=== PATIENT | female | born 2000 | race Caucasian/White ===

== ENCOUNTER → 2019-05-30 11:47 | Outpatient (CLI) | payer OTHER, SELFPAY ==
[2017-08-10 17:56] VITALS: BMI 40.7
== END ==
PROVIDERS: Referring Provider Nurse Practitioner Adult Health; Visit Provider Nurse Practitioner Adult Health
DX: N76.0 Acute vaginitis (principal); Z01.419 Encounter for gynecological examination (general) (routine) without abnormal findings; Z20.2 Contact with and (suspected) exposure to infections with a predominantly sexual mode of transmission
CPT/HCPCS: 87070; 87077; 87186; 87205

== ENCOUNTER → 2019-12-27 12:26 | Outpatient (CLI) | payer OTHER, SELFPAY ==
[2019-12-27 11:29] VITALS: BMI 40.7
[2019-12-27 12:43] LABS: Absolute Lymphocyte Count 1.77 X10^3/uL (0.83-4.51); Absolute Neutrophil Count 6.7 X10^3/uL (2.0-7.7); Basophil# 0.05 X10^3/uL; Basophil% 0.5 % (0-1); Eosinophil# 0.16 X10^3/uL; Eosinophils% 1.7 % (0-5); Hematocrit 38.3 % (37-47); Hemoglobin 12.6 g/dL (12.0-15.0); Lymphocyte # 1.77 X10^3/ul (4.0); Lymphocyte % 19.2 % (19-41); Mean Corp Hgb Conc 32.9 g/dL (32-36); Mean Corpuscular Hgb 27.3 pg (27.0-32.0); Mean Corpuscular Volume 82.9 fL (81-99); Mean Platelet Vol. 10.5 fl (6.2-12.0); Monocyte# 0.51 X10^3/uL; Monocyte% 5.5 % (0-10); NRBC Flagged by Analyzer 0 % (0-5); Neutrophil # 6.69 X10^3/uL (2.7-7.7); Neutrophil % 72.9 % (47-70); Platelet Count 296 K/mm3 (150-450); RBC Distribution Width CV 14.4 % (11.6-14.6); RBC Distribution Width SD 43.5 fl (35.1-43.9); Red Blood Count 4.62 M/mm3 (4.2-5.4); White Blood Count 9.2 K/mm3 (4.4-11.0)
[2019-12-27 13:46] LABS: HIV - WCH Non-Reactive (Nonreactive); Hepatitis B Surface Antigen Non-Reactive (Nonreactive); Hepatitis C Antibody Non-Reactive (Nonreactive); Rubella IgG 43.7 IU/mL
[2019-12-27 18:42] LABS: Amphetamine Urine VISTA NEGATIVE (<1000 ng/mL); Barbiturate Urine VISTA NEGATIVE (< 200 ng/mL); Benzodiazepine Urine VISTA NEGATIVE (< 200 ng/mL); Cocaine Urine VISTA NEGATIVE (< 300 ng/mL); Ecstacy Urine VISTA NEGATIVE (< 500 ng/mL); Methadone Urine VISTA NEGATIVE (< 300 ng/mL); PCP Urine VISTA NEGATIVE (< 25 ng/mL); THC Urine VISTA POSITIVE (< 50 ng/mL); Vista UDS pH Range 5
[2019-12-27 20:41] LABS: Chlamydia Trachomatis by PCR Negative (Negative); Neisserai gonorrhoeae by PCR Negative (Negative); Probe Check PASS; Sample Adequacy Control PASS; Specimen Processing Control PASS
[2020-01-03 11:05] LABS: Rapid Plasmin Reagin (RPR) NONREACTIVE (NONREACTIVE)
== END ==
LOC: PAVLAB 12:27
PROVIDERS: PCP Family Medicine; Referring Provider Obstetrics & Gynecology; Visit Provider Obstetrics & Gynecology
DX: Z34.90 Encounter for supervision of normal pregnancy, unspecified, unspecified trimester (principal)
CPT/HCPCS: 36415; 80307; 85025; 86592; 86703; 86762; 86803; 86850; 86900; 86901; 87086; 87088; 87340; 87491; 87591

== ENCOUNTER → 2020-05-09 13:02 | Outpatient (CLI) | payer OTHER, SELFPAY ==
[2020-04-04 10:28] VITALS: BMI 40.6
[2020-05-09 14:34] LABS: Absolute Lymphocyte Count 1.74 X10^3/uL (0.83-4.51); Absolute Neutrophil Count 5.2 X10^3/uL (2.0-7.7); Basophil# 0.04 X10^3/uL; Basophil% 0.5 % (0-1); Eosinophil# 0.17 X10^3/uL; Eosinophils% 2.2 % (0-5); Hematocrit 34.9 % (37-47); Hemoglobin 11.3 g/dL (12.0-15.0); Lymphocyte # 1.74 X10^3/ul (4.0); Lymphocyte % 22.8 % (19-41); Mean Corp Hgb Conc 32.4 g/dL (32-36); Mean Corpuscular Hgb 27.5 pg (27.0-32.0); Mean Corpuscular Volume 84.9 fL (81-99); Mean Platelet Vol. 10.6 fl (6.2-12.0); Monocyte# 0.44 X10^3/uL; Monocyte% 5.8 % (0-10); NRBC Flagged by Analyzer 0 % (0-5); Neutrophil # 5.18 X10^3/uL (2.7-7.7); Platelet Count 252 K/mm3 (150-450); RBC Distribution Width CV 13.6 % (11.6-14.6); RBC Distribution Width SD 42.2 fl (35.1-43.9); Red Blood Count 4.11 M/mm3 (4.2-5.4); White Blood Count 7.6 K/mm3 (4.4-11.0)
[2020-05-09 15:45] LABS: Glucose Challenge Gest 1H 50g 159 mg/dL (70-140)
== END ==
PROVIDERS: Obstetrics & Gynecology; PCP Family Medicine; Referring Provider Obstetrics & Gynecology; Visit Provider Obstetrics & Gynecology
DX: O26.899 Other specified pregnancy related conditions, unspecified trimester (principal); Z13.1 Encounter for screening for diabetes mellitus; Z67.91 Unspecified blood type, Rh negative; Z3A.00 Weeks of gestation of pregnancy not specified
CPT/HCPCS: 36415; 82950; 85025; 86850; 86900; 86901

== ENCOUNTER → 2020-05-14 09:54 | Outpatient (CLI) | payer OTHER, SELFPAY ==
[2020-05-09 14:23] VITALS: BMI 41.6
[2020-05-14 11:33] LABS: Glucose GTT-Gestation. Fasting 73 mg/dL (<105)
[2020-05-14 11:33] LABS: Glucose GTT-Gestational 1 Hr 154 mg/dL (<190)
[2020-05-14 13:11] LABS: Glucose GTT-Gestational 2 Hr 133 mg/dL (<165)
[2020-05-14 14:31] LABS: Glucose GTT-Gestational 3 Hr 102 L (<145)
== END ==
PROVIDERS: PCP Family Medicine; Referring Provider Obstetrics & Gynecology; Visit Provider Obstetrics & Gynecology
DX: R73.09 Other abnormal glucose (principal)
CPT/HCPCS: 36415; 82951; 82952

== ENCOUNTER → 2020-05-20 | Outpatient (CLI) | payer OTHER, SELFPAY ==
[2020-05-20 09:14] VITALS: BMI 42.1
[2020-05-20 13:52] LABS: Amphetamine Urine VISTA NEGATIVE (<1000 ng/mL); Barbiturate Urine VISTA NEGATIVE (< 200 ng/mL); Benzodiazepine Urine VISTA NEGATIVE (< 200 ng/mL); Cocaine Urine VISTA NEGATIVE (< 300 ng/mL); Ecstacy Urine VISTA NEGATIVE (< 500 ng/mL); Methadone Urine VISTA NEGATIVE (< 300 ng/mL); PCP Urine VISTA NEGATIVE (< 25 ng/mL); THC Urine VISTA POSITIVE (< 50 ng/mL); Vista UDS pH Range 5
== END | disposition home or self-care (01) ==
LOC: LABSPEC 12:48
PROVIDERS: PCP Family Medicine; Visit Provider Obstetrics & Gynecology
DX: O26.899 Other specified pregnancy related conditions, unspecified trimester (principal); N89.8 Other specified noninflammatory disorders of vagina; F12.10 Cannabis abuse, uncomplicated
CPT/HCPCS: 80307; 87070; 87205

== ENCOUNTER → 2020-07-09 | Outpatient (CLI) | payer OTHER, MEDICAID, SELFPAY ==
[2020-07-09 10:05] VITALS: BMI 45.5
== END | disposition home or self-care (01) ==
LOC: LABSPEC 12:22
PROVIDERS: PCP Family Medicine; Referring Provider Obstetrics & Gynecology; Visit Provider Obstetrics & Gynecology
DX: O09.90 Supervision of high risk pregnancy, unspecified, unspecified trimester (principal); Z3A.00 Weeks of gestation of pregnancy not specified
CPT/HCPCS: 87077; 87081; 87186

== ENCOUNTER 2020-07-16 21:34 | Outpatient (CLI) | payer OTHER, MEDICAID, SELFPAY ==
[2020-07-09 10:05] VITALS: BMI 45.5
[2020-07-16 22:02] VITALS: BP 131/71; PULSE 100
[2020-07-16 22:04] VITALS: TEMP 37; O2SAT 98
[2020-07-16 23:44] VITALS: BMI 46.2
--- NOTE | 2020-07-18 13:59 | OB.TRI.PN ---
Progress Notes Date of Service: 07/16/20 Progress Note: Patient presents for triage evaluation secondary to contractions. Cervix closed. Contractions resolved after arrival. FHT: Moderate variability reactive no decelerations category I tracing [place]: Irregular Contractions Assessment and plan: Reactive NST, reassuring maternal and status patient discharged to home to follow-up .at next scheduled visit. See problem list details for additional plan information. Multi Select Codes - Urinary/Genital Urinary/Genital CPT Codes: 74319-79 non-stress test Interp
== END 2020-07-16 22:35 | disposition home or self-care (01) ==
LOC: WPOUT 21:56 → WP 21:58
PROVIDERS: PCP Family Medicine; Visit Provider Obstetrics & Gynecology
DX: Z34.90 Encounter for supervision of normal pregnancy, unspecified, unspecified trimester (principal); Z3A.00 Weeks of gestation of pregnancy not specified
CPT/HCPCS: 59025; 59050; 99218; G0378

== ENCOUNTER 2020-08-07 19:00 | Inpatient (IN) | payer OTHER, MEDICAID, SELFPAY ==
[2020-08-04 14:15] VITALS: BMI 47.1
[2020-08-07 19:24] VITALS: BMI 46.4
[2020-08-07 19:46] VITALS: TEMP 36.7; O2SAT 98
[2020-08-07 19:47] VITALS: BP 138/66; PULSE 113
[2020-08-07] MEDS: Lactated Ringers 1,000 ML 50 ML IV (20:10)
[2020-08-07 20:27] LABS: Absolute Lymphocyte Count 1.31 X10^3/uL (0.83-4.51); Absolute Neutrophil Count 5.9 X10^3/uL (2.0-7.7); Basophil# 0.03 X10^3/uL; Basophil% 0.4 % (0-1); Eosinophil# 0.16 X10^3/uL; Hematocrit 34.2 % (37-47); Hemoglobin 10.6 g/dL (12.0-15.0); Lymphocyte # 1.31 X10^3/ul (4.0); Lymphocyte % 16.7 % (19-41); Mean Corpuscular Hgb 24.7 pg (27.0-32.0); Mean Corpuscular Volume 79.5 fL (81-99); Mean Platelet Vol. 11.2 fl (6.2-12.0); Monocyte# 0.44 X10^3/uL; Monocyte% 5.6 % (0-10); NRBC Flagged by Analyzer 0 % (0-5); Neutrophil # 5.86 X10^3/uL (2.7-7.7); Neutrophil % 74.5 % (47-70); POSITIVE MORPHOLOGY YES; Platelet Count 266 K/mm3 (150-450); RBC Distribution Width CV 15.6 % (11.6-14.6); RBC Distribution Width SD 44.3 fl (35.1-43.9); White Blood Count 7.9 K/mm3 (4.4-11.0)
[2020-08-07] MEDS: 0.9% Normal Saline Single 100 ML IV.SOLN. INTRA-UTER (20:27)
[2020-08-07] MEDS: miSOPROStol 25 MCG TABLET PO (20:38)
[2020-08-07 20:48] LABS: Differential Indicated SCAN CRITERIA MET
[2020-08-07 20:54] LABS: Anisocytosis 1+; Platelet Estimate ADEQUATE (ADEQ); Red Cell Morphology N CHROM NORMAL (NORM C&C)
[2020-08-07 20:55] LABS: Hypochromasia RARE; Microcytosis 1+; Tear Drop Cell RARE
[2020-08-07 21:25] VITALS: BP 133/78; PULSE 87; TEMP 36.1
[2020-08-07 22:21] VITALS: TEMP 36.4
[2020-08-07 22:22] VITALS: BP 132/60; PULSE 100; O2SAT 98
[2020-08-07 23:17] VITALS: BP 115/56; PULSE 88; TEMP 36.7
[2020-08-07] MEDS: Mag Hydrox/Al Hydrox/Simeth 30 ML UDC PO (23:22)
[2020-08-08] VITALS (66 sets, daily range): BP systolic 93–179; BP diastolic 41–120; PULSE 76–115; TEMP 36.1–37.8; O2SAT 84–100
[2020-08-08] MEDS: miSOPROStol 25 MCG TABLET PO (00:28)
--- NOTE | 2020-08-08 00:54 | HP.PCM_ITS ---
- Problem List (1) Encounter for induction of labor Status: Acute (2) 36 weeks gestation of Status: Acute Comment: electronic covid test ordered 07/09/20 (3) Abnormal glucose Status: Acute Comment: normal 3gtt (4) Anxiety Status: Acute Comment: no meds, encouraged counseling. (5) Asthma during Status: Acute Comment: proair PRN, controlled (6) Family history of myasthenia gravis Status: Acute Comment: patient's father's side (7) Marijuana abuse Status: Acute Comment: + tox 12/27/2019, encouraged cessation plan random tox. (8) Obesity affecting Status: Acute Qualifiers: Comment: ordered 1 TM gct- didn't get done. . encouraged healthy weight gain (9) Positive GBS test Status: Acute Comment: PCN in labor (10) Status: Acute Qualifiers: Comment: NIPT, carrier, and ntd screening declined. Anatomy us normal (11) Rh negative status during Status: Acute Qualifiers: Comment: rhogam PRN and at 28 weeks. Rhogam given 05/09 (12) Supervision of high-risk Status: Acute Qualifiers: Comment: PRR ELENI 08/01/20 Girl! Historia Support person [place] (13) Tobacco use during Status: Acute Qualifiers: Comment: cigarettes and vaping, encouraged cessation. History and Physical Date of Admission: 08/08/20 Intake Vital Signs 08/04/20 Height 5 ft 6 in 08/04/20 Weight: 292 lb 08/04/20 BMI 47.1 08/04/20 BP 120/80 Intake Visit Reasons: 41WK OB Chief Complaint: est ob Contract Recruiter Required: No Is patient in pain?: No Allergies No Known Allergies Allergy (Verified 08/04/20 14:15) Medications Albuterol IH (ProAir) [Proair Hfa (SP)Vent Pts] 1 puff INHALATION Q4H PRN PRN 03/18/17 [History Confirmed 08/04/20] vitamin#30 30 mg iron-10 mg iron-folic acid 1 mg-omg3 capsule 1 cap PO DAILY 12/27/19 [History Confirmed 08/04/20] famotidine 20 mg tablet 20 mg PO BID #60 tab 05/20/20 [Rx Confirmed 08/04/20] Last Menstral Period: 10/15/19 Zika: Zika virus screening: Negative : No PFSH PFSH Medical History Anxiety (Acute) Asthma (Acute) Diarrhea (Acute) SOB (shortness of breath) (Acute) Family History Mother Heart disease, Onset Age: 58 Myocardial infarction Father Heart disease Myocardial infarction, Onset Age: 57 Other Asthma Cancer Diabetes Social History (Updated 08/04/20 @ 14:[address] Barb Macedo MD) Smoking Status: Former smoker Electronic Cigarette Use: with nicotine alcohol intake: never substance use type: marijuana caffeine: Yes what type of physical activity do you participate in: none seatbelt use: always do you feel safe at home: Yes additional social history: Patient works at [employer] (3rd shift) Support person Montserrat zuleta FOB Pregancy History 1 Elective abortions Hx Para Spontaneous abortions Hx # Term Pregnancies Ectopic pregnancies Hx # Pregnancies Multiple births # of living children HPI 41WK OB : Details: TANK QUACH is a 20 year old who presents for routine OB visit. OB Visit ELENI Calculator Estimated Delivery Date Method Current WG Current Estimate 08/01/20 Ultrasound #1 40w 3d Other Estimates 07/21/20 LMP (Certain) 42w 0d Expected Delivery Route/Plan Labor Preferences- CB/BF classes: none labor support person: ruth Le labor intervention preferences: no specific pain management options preferred: Epidural cut cord/dad catch: : yes PP control planned: [] discussed possible routes of delivery and associated risks: discussed possible delivery modalities and possible indications for each including R/B/A of , VAVD, FAVD, and CS. questions answered. special requests: [] Specific Issue/Plans flu vaccine: declined tdap vaccine: 05/09 rhogam: 05/09 LARC form signed: declined movement and labor precautions reviewed. Problem list reviewed and updated with the most current plan of care details and appropriate orders placed. Relevant counseling for the gestational age provided. Continue routine care and follow up unless otherwise noted in visit notes/problem list details Initial Weight: 250 lb Date EGA Weight BP Urine Prot Glucose FHR FuHt Pres Dilation Effaced St Visit Note 12/27/19 8w 6d 241 lb (-9 lb) 100/80 170 SM- CRL- SM- CRL - 3.7cm cons with LMP SM- CRL - SM- CRL - 19.6mm NOT consistent with LMP 01/10/20 10w 6d 239 lb (-11 lb) 112/74 Negative Negative 168 SM- no vb cramping, nipt and carrier screen 02/05/20 14w 4d 248 lb (-2 lb) 122/80 Negative Negative 155 SM- no vb cramping decided against all testing. 03/05/20 18w 5d 255 lb (+5 lb) 104/82 Negative Negative 150 Sm- no vb cramping 04/04/20 23w 0d 255 lb 6 oz (+5 lb 6 oz) 112/82 Negative Negative 140 23 GP -no cramping, LOF, VB, DFM. Encouraged CB classes. GCT and rhogam next vi sit. 05/09/20 28w 0d 262 lb (+12 lb) 114/72 Negative Negative 135 28 GP - no LOF, VB, DFM, ctx. 3rd trimester labs done today. TDAP and rhogam given. 05/20/20 29w 4d 265 lb 4 oz (+15 lb 4 oz) 114/80 1+ Negative 145 29 GP - no LOF, VB, DFM, ctx. Reports vaginal odor - culture and rapid BV done today. Passed 3h GCT. 06/03/20 31w 4d 269 lb (+19 lb) 118/70 135 31 SM- no vb lof good fm no regular ctx 06/16/20 33w 3d 277 lb (+27 lb) 124/86 Negative Negative 140 34 SM- no vb lof good fm no regular ctx inproved GERD 06/30/20 35w 3d 282 lb (+32 lb) 114/68 Negative Negative 140 35 Sm- no vb lof good fm no regular ctx 07/09/20 36w 5d 286 lb 2 oz (+36 lb 2 oz) 128/68 Negative Negative 130 36 Cephalic 0 40 -2 GP - no LOF, VB, DFM, ctx . GBS done today. 07/17/20 37w 6d 285 lb 8 oz (+35 lb 8 oz) 120/80 Negative Negative 132 38 MH-Irreg CTX. No VB, LOF. Good FM. Declines internal exam. See last pm WP for rule out labor. RTO 1 week, prn. Discussed positive GBS. Covid scheduled 07/23/20 38w 5d 291 lb 4 oz (+41 lb 4 oz) 124/74 Negative Negative 120 39 Cephalic 0 40 -2 GP - no LOF, VB, DFM, ctx . Discussed routes of delivery. Discussed IOL at 41w if no labor. 07/31/20 39w 6d 288 lb (+38 lb) 138/80 Negative Negative 140 40 Cephalic 0 40 SM_ no vb lof good fm no regular ctx 08/04/20 40w 3d 292 lb (+42 lb) 120/80 Negative Negative 140 40 Cephalic 0.5 50 -2 GP - no LOF, VB, DFM, reg ular ctx. IOL scheduled for . ACOG First Trimester First Trimester: Desire for , Alcohol, Tobacco Cessation, Illicit/Recreational Drug/Substance Use, Intimate Partner Violence, Barriers to care, Unstable Housing, Communication Barriers, Environmental/Work Hazards, Anticipated Course of Care, Toxoplasmosis Precations, Use of Any medications, Sexual activity, Exercise, Dental Care, Sauna/Hot tub use, Seat Belt use, Childbirth classes/Hospital facilities, , Travel, Indications for US and Screening for Aneuploidy Diagnostics Diagnostics Diagnostics Gest Glucose Tolerance MG/DL 05/14/20 Details: HIV: Urine Culture: Sequential Screen: NIPT Screen: ROS Const Reports system reviewed and no additional complaints, except as docu Eyes Reports system reviewed and no additional complaints, except as docu ENT Reports system reviewed and no additional complaints, except as docu Card Reports system reviewed and no additional complaints, except as docu Resp Reports system reviewed and no additional complaints, except as docu GI Reports system reviewed and no additional complaints, except as docu Reports system reviewed and no additional complaints, except as docu, Denies abnormal vaginal bleeding, Denies painful urination, Denies pelvic pain, Denies vaginal discharge, Denies vaginal odor, Denies vaginal itching Musc Reports system reviewed and no additional complaints, except as docu Skin/Breast Reports system reviewed and no additional complaints, except as docu Neuro Yes system reviewed and no additional complaints, except as docu Psych Reports system reviewed and no additional complaints, except as docu Endo Reports system reviewed and no additional complaints, except as docu Exam Const General: cooperative, healthy appearing, comfortable, no acute distress, well developed, well groomed Nutritional Appearance: average body habitus, well nourished Orientation: alert, awake, oriented x3 HENMT Head: normal to inspection, normocephalic, atraumatic Eyes Pupils: PERRL, accommodation normal Resp Effort & Inspection: normal respiratory effort, able to speak in complete sentences, symmetric chest movement Cardio Rate: regular rate GI Palpation: soft, no guarding, no masses, nontender Skin General: no rashes or lesions noted, elasticity normal, turgor normal Neuro General: alert, awake, oriented x3 Cranial Nerves: CN's II-XI intact bilaterally, sense of smell intact, PERRL, accommodation normal, EOM intact bilaterally Speech: speech normal Gait: normal gait Psych Appearance: grossly normal, well kempt Mental Status: mental status grossly normal Mood: congruent mood Affect: normal affect Speech and Movement: speech and movement normal Attitude: cooperative Thought Process: normal Thought Content: normal Judgment: judgment good Results POC Urinalysis 2 Dip (Clinic) Office Urine Glucose Negative Last Edit by Rosetta Real on 08/04/20 14:1 9 Office Urine Protein Negative Last Edit by Rosetta Real on 08/04/20 14:1 9 Assessment & Plan Problems 1. Positive GBS test B95.1 PCN in labor 2. 36 weeks gestation of Z3A.36 electronic covid test ordered 07/09/20 3. Abnormal glucose R73.09 normal 3gtt 4. Rh negative status during in third trimester O26.893 rhogam PRN and at 28 weeks. Rhogam given 05/09 5. Asthma during O99.519; J45.909 proair PRN, controlled 6. Anxiety F41.9 no meds, encouraged counseling. 7. Family history of myasthenia gravis Z82.0 patient's father's side 8. Maternal tobacco use in third trimester O99.333 cigarettes and vaping, encouraged cessation. 9. Obesity affecting in third trimester O99.213 ordered 1 TM gct- didn't get done. . encouraged healthy weight gain 10. 40 weeks gestation of Z3A.40 NIPT, carrier, and ntd screening declined. Anatomy us normal 11. Supervision of high risk in third trimester O09.93 PRR ELENI 08/01/20 Girl! Historia Support person [place] UPDATE- I have seen the patient and performed any clinically relevant updates to the history and physical exam. Barb Macedo MD
[2020-08-08 01:03] LABS: Amphetamine Urine VISTA NEGATIVE (<1000 ng/mL); Barbiturate Urine VISTA NEGATIVE (< 200 ng/mL); Benzodiazepine Urine VISTA NEGATIVE (< 200 ng/mL); Cocaine Urine VISTA NEGATIVE (< 300 ng/mL); Ecstacy Urine VISTA NEGATIVE (< 500 ng/mL); Methadone Urine VISTA NEGATIVE (< 300 ng/mL); PCP Urine VISTA NEGATIVE (< 25 ng/mL); THC Urine VISTA NEGATIVE (< 50 ng/mL); Vista UDS pH Range 5
[2020-08-08] MEDS: Oxytocin 30 units/NS 500 ml 30 UNITS/500 ML IV.SOLN IV (04:26)
[2020-08-08] MEDS: Lactated Ringers 500 ML 999 ML IV ×4 (09:05→21:07)
[2020-08-08] MEDS: fentaNYL-bupivacaine (epidural) 100 ML BAG EPIDURAL ×3 (10:40→20:17)
[2020-08-08] MEDS: Ondansetron 4 MG/2 ML Vial IV (11:15)
[2020-08-08] MEDS: Lactated Ringers 1,000 ML 200 ML IV ×2 (11:29→17:41)
[2020-08-08] MEDS: Mag Hydrox/Al Hydrox/Simeth 30 ML UDC PO (16:53)
[2020-08-09] VITALS (18 sets, daily range): BP systolic 118–148; BP diastolic 55–74; PULSE 89–120; RESP 16–20; TEMP 36.2–37.6; O2SAT 97–98
[2020-08-09] MEDS: Amnioinfusion- 0.9% NS 1,000 ML IV.SOLN. INTRA-UTER (00:32)
[2020-08-09] MEDS: Lactated Ringers 500 ML 999 ML IV (00:38)
[2020-08-09] MEDS: Oxytocin 30 units/NS 500 ml 30 UNITS/500 ML IV.SOLN 334 UNITS IV (00:53)
--- NOTE | 2020-08-09 01:17 | OP.PCM_ITS ---
Problem List (1) Encounter for induction of labor Status: Acute (2) Positive GBS test Status: Acute Comment: PCN in labor (3) 36 weeks gestation of Status: Acute Comment: electronic covid test ordered 07/09/20 (4) Abnormal glucose Status: Acute Comment: normal 3gtt (5) Rh negative status during Status: Acute Qualifiers: Comment: rhogam PRN and at 28 weeks. Rhogam given 05/09 (6) Asthma during Status: Acute Comment: proair PRN, controlled (7) Anxiety Status: Acute Comment: no meds, encouraged counseling. (8) Family history of myasthenia gravis Status: Acute Comment: patient's father's side (9) Tobacco use during Status: Acute Qualifiers: Comment: cigarettes and vaping, encouraged cessation. (10) Marijuana abuse Status: Acute Comment: + tox 12/27/2019, encouraged cessation plan random tox. (11) Obesity affecting Status: Acute Qualifiers: Comment: ordered 1 TM gct- didn't get done. . encouraged healthy weight gain (12) Status: Acute Qualifiers: Comment: NIPT, carrier, and ntd screening declined. Anatomy us normal (13) Supervision of high-risk Status: Acute Qualifiers: Comment: PRR ELENI 08/01/20 Girl! Historia Support person [place] (14) Post-dates Status: Acute (15) Encounter for induction of labor Status: Acute Vaginal Delivery Maternal Presentation: Medically Indicated Induction iol 41 weeks Method of Induction: Pitocin, Franco Bulb, Cytotec Amniotic Membrane Rupture Type: Artificial Amniotic Fluid Description: Clear Final ELENI: 07/31/20 Gestational age: 41 Weeks and 2 Days Date of Procedure: 08/09/20 Pre-Operative Diagnosis: iol postdates Post-Operative Diagnosis: same Surgery/ Procedure Performed: Spontaneous Vaginal Delivery Type of Anesthesia: Epidural Description of Procedure: Patient began pushing and delivered the head in the AYDEE presentation. The head was delivered atraumatically. The anterior and posterior shoulders delivered without complication followed by the rest of the and the infant was placed on the maternal abdomen. Delayed cord clamping was employed for approximately 60 seconds. Cord was clamped and cut and gentle traction was applied to the cord and the placenta delivered spontaneously immediately following it was noted to be intact with three-vessel cord. The perineum and vagina were inspected and noted to have a first-degree perineal laceration repaired in the usual fashion with 3-0 Vicryl repeat. EBL was 100 cc. Patient and infant tolerated delivery well. Presentation: AYDEE Placental Delivery Description: Spontaneous Placenta Disposition: [facility] Cord Vessel Description: 3 Vessels Cord Entanglement: None Estimated Blood Loss: 100 A gender: Female Episiotomy Description: None Laceration: Perineal Extension/lac, 1st degree Medications given after delivery: IV Pitocin Complications: None Multi Select Codes - Urinary/Genital Urinary/Genital CPT Codes: 51263 Vaginal Delivery [facility]
--- NOTE | 2020-08-09 01:25 | DCINST_ITS ---
Discharge Diet: No Restrictions Discharge Activity: Return to Normal Activity, May not drive while taking narcotic pain medications., May Shower May resume sexual activity in: 4-6 weeks Call your doctor if your incision/area has: Continuous Slow Oozing, Sudden Increased Bleeding, Increased Pain/ Swelling, Increased Redness, Foul Smelling Discharge Additional Instructions: If you experience any of the following, contact your healthcare provider. * Bleeding that soaks a pad every hour for 2 hours * Fever 100.4 or higher * Unrelieved incision or abdominal pain * Swelling, redness, discharge or bleeding from your incision or episiotomy site * Your incision begins to separate * Problems urinating (including inability to urinate or burning while urinating). * Visual changes * Severe headache * Flu-like symptoms * Pain or redness in one of both of your breasts * Pain, warmth, tenderness or swelling in your legs, especially the calf area * Frequent nausea and vomiting * Symptoms of depression or anxiety If you experience any of the following, call 911 or go to the nearest Emergency Room. * Chest pain * Problems breathing * Seizure activity * Partial or complete paralysis of a body part, slurred speech, weakness or drooping of the face, or a sudden inability to walk or hold your balance Allergies/Adverse Reactions: Allergies No Known Allergies Allergy (Verified 08/07/20 19:40) Medications to take at Discharge Albuterol IH (ProAir) [Proair Hfa (SP)Vent Pts] 1 puff INHALATION Q4H PRN PRN 03/18/17 vitamin#30 30 mg iron-10 mg iron-folic acid 1 mg-omg3 capsule 1 cap PO DAILY 12/27/19 Famotidine 20 mg PO BID 08/07/20 Naproxen [Naprosyn] 250 - 500 mg PO Q8H PRN PRN #30 tab 08/09/20 The following prescriptions were given: Naproxen [Naprosyn] 250 - 500 mg PO Q8H PRN PRN #30 tab PRN Reason: MILD PAIN Transmission Status: Pending to [facility] Please Follow Up With: Joceline Palacios MD - [phone] When: Call to make an appointment with your doctor in 6 weeks. If you had elevated Blood pressure or 4th degree laceration you will need to be seen in 2 weeks. Primary Care Physician: Sean Carl MD [Primary Care Provider] - Test Results: Test results from this visit will be discussed in further detail at your follow- up appointment, if applicable.
[2020-08-09] MEDS: Naproxen 250 MG Tablet 500 MG PO ×2 (01:33→14:10)
[2020-08-09] MEDS: oxyCODONE 5 MG Tablet PO (01:33)
[2020-08-09] MEDS: 0.9% Saline Lock 10 ML Syringe IV (03:45)
[2020-08-09] MEDS: Acetaminophen 500 MG Tablet 1000 MG PO ×2 (09:35→20:36)
--- NOTE | 2020-08-09 16:50 | CASEMGMT ---
Social Work Assessment Labor and Delivery Unit Date of Referral: 08/09/20 Time of Referral: 04:53 Date of Intervention: 08/09/20 Time of Intervention: 16:50 Reason for Referral: History of anxiety, marijuana use during , father of baby (FOB) not involved. History obtained from: Medical chart and mother of baby (MOB) Household composition: NAYELI reports lives home with her sister and 2 other roommates that are female. Patient's parent/guardian status: MOB reports is not with FOB and will require a paternity test. Educational Status: High School Financial Status: Limited income Infant Supplies: MOB reports has all needs met for baby including diapers, wipes, clothes, car seat, crib, etc. Childcare/Caregiver(s): MOB reports she will be main nursing care partner Transportation: MOB denies any issues with transportation Programs/Agencies Involved: [facility] Children Services/Legal Issues: MOB reports was in foster care for 6 years. MOB reports was adopted by iMmi Fuller. Behavioral Health Issues: Mental Health History: MOB reports history of anxiety. MOB reports anxiety and managed without medications. MOB states prior history of counseling when she was being adopted. Substance Use History: MOB admits to marijuana use during and states stopped when she found out she was . MOB reports plan is to abstain from marijuana use. Maternal and Drug Screens: MOB had positive screens for THC on 12/27/2019 and 05/20/2020. MOB negative upon admission. Baby?s urine negative. Meconium is pending. Family/Social Stressors: MOB states does not know who baby girl, Historia?s father is and will be obtaining a paternity test. MOB reports baby girl has ?similar features? to whom she believes is the father of baby. Support Systems: MOB reports good support from sister and roommates and family. Depression and Anxiety/Shaken Baby/Safe Sleeping: Resources provided and reviewed. ASSESSMENT: Met with MOB in room. Introduced role and reason for referral. MOB open to speaking with this worker. MOB openly discussed history of anxiety. MOB reports at times has used marijuana to cope with anxiety but has been managing anxiety without medications. MOB admits to marijuana use during and reports abstained from use after finding out she was . MOB states father of baby is not involved and will require a paternity test. MOB states good support from family and roommates. MOB denies any needs or referrals at this time. Due to reported marijuana use and positive tox screen for THC during report to be made 08/11/20 to [facility]. Safe Plan of Care for infant related to substance use: MOB reports does not continue to use marijuana once home. PLAN: Home with resources provided. No other services requested or indicated. Galen Rivas, CLINICAL DIETETIC TECHNICIAN, TEST DRIVER
[2020-08-10 01:58] VITALS: BP 121/61; PULSE 80; RESP 16; TEMP 36.6
[2020-08-10] MEDS: Acetaminophen 500 MG Tablet 1000 MG PO ×2 (06:24→20:15)
[2020-08-10 08:10] VITALS: BP 138/57; PULSE 98; RESP 18; TEMP 35.8
--- NOTE | 2020-08-10 08:32 | PCM.PN.OB ---
Patient Problems: Active and Suspected Problems (Last Reviewed 08/04/20 @ 14:15 by Rosetta Real) Encounter for induction of labor (Acute) Post-dates (Acute) Encounter for induction of labor (Acute) Positive GBS test (Acute) PCN in labor 36 weeks gestation of (Acute) electronic covid test ordered 07/09/20 Abnormal glucose (Acute) normal 3gtt Rh negative status during (Acute) rhogam PRN and at 28 weeks. Rhogam given 05/09 Asthma during (Acute) proair PRN, controlled Anxiety (Acute) no meds, encouraged counseling. Family history of myasthenia gravis (Acute) patient's father's side Tobacco use during (Acute) cigarettes and vaping, encouraged cessation. Marijuana abuse (Acute) + tox 12/27/2019, encouraged cessation plan random tox. Obesity affecting (Acute) ordered 1 TM gct- didn't get done. . encouraged healthy weight gain (Acute) NIPT, carrier, and ntd screening declined. Anatomy us normal Supervision of high-risk (Acute) PRR ELENI 08/01/20 Girl! Historia Support person [place] Subjective: Patient doing well without complaints. Tolerating PO. Ambulating and voiding without difficulty. feeding well. Denies chest pain, shortness of breath, calf pain/swelling, fevers, chills, lightheadedness. - Physical Exam Vitals/I&O's: Vital Signs Temp Pulse Resp BP Pulse Ox 97.8 F 80 16 121/61 H 97 08/10/20 01:58 08/10/20 01:58 08/10/20 01:58 08/10/20 01:58 08/09/20 03:23 Oxygen Delivery Method Room Air Weight: 287 lb 14.779 oz Body Mass Index (BMI) 46.4 Intake and Output for Last 24 Hours 08/08/20 08/09/20 08/10/20 23:59 23:59 23:59 Intake Total 6284.13 / 6284.13 850.42 / 850.42 Output Total 3050 / 3050 1475 / 1475 Balance 3234.13 / 3234.13 -624.58 / -624.58 General: Alert, Oriented x3 Microbiology Past 72 Hours 08/07/20 20:15 Mucosa - Nose SARS-CoV-2 Antigen (Rapid) - Final Current Medications Acetaminophen (Acetaminophen 500 Mg Tablet) 1,000 mg PO Q8H PRN PRN PRN Reason: Pain Score 1-3 Last Admin: 08/10/20 06:24 Dose: 1,000 mg Documented by: Bisacodyl (Bisacodyl 10 Mg Suppository) 10 mg RC UD PRN PRN Reason: If no BM Dibucaine (Dibucaine 30 Gm Tube) 1 applic TOPICAL TID PRN PRN; Protocol PRN Reason: Discomfort Hydrocortisone (Hydrocortisone 2.5% Crm) 1 applic TOPICAL TID PRN PRN; Protocol PRN Reason: Discomfort Methylergonovine Maleate (Methylergonovine 0.2 Mg/Ml Ampul) 0.2 mg IM X1 PRN PRN Reason: Excess bleeding/uterine atony Naproxen (Naproxen 250 Mg Tablet) 500 mg PO Q8H PRN PRN PRN Reason: Pain Score 1-3 Last Admin: 08/09/20 14:10 Dose: 500 mg Documented by: Ondansetron HCl (Ondansetron 4 Mg/2 Ml Vial) 4 mg IV Q4H PRN PRN PRN Reason: Nausea Oxycodone HCl (Oxycodone 5 Mg Tablet) 5 - 10 mg PO Q4H PRN PRN PRN Reason: Pain Score 4-10 Last Admin: 08/09/20 01:33 Dose: 10 mg Documented by: Senna/Docusate Sodium (Senna/Docusate Sodium 1 Tablet) 1 - 2 tablet PO DAILY PRN PRN PRN Reason: Constipation Simethicone (Simethicone 80 Mg Tablet) 80 mg PO PCHS PRN PRN Reason: Indigestion/Stomach pain Sodium Chloride (0.9% Saline Lock 10 Ml Syringe) 5 - 15 ml IV UD PRN PRN Reason: SALINE FLUSH Last Admin: 08/09/20 03:45 Dose: 10 ml Documented by: Medical Necessity - Tobacco Use Smoking Status: Former smoker Assessment/Plan All Active Problems (Last Reviewed 08/04/20 @ 14:15 by Rosetta Real) Encounter for induction of labor (Acute) Post-dates (Acute) Encounter for induction of labor (Acute) Positive GBS test (Acute) 36 weeks gestation of (Acute) Abnormal glucose (Acute) Rh negative status during (Acute) Asthma during (Acute) Anxiety (Acute) Family history of myasthenia gravis (Acute) Tobacco use during (Acute) Marijuana abuse (Acute) Obesity affecting (Acute) (Acute) Supervision of high-risk (Acute) Pharyngitis (Resolved) Sinusitis (Resolved) Streptococcus pharyngitis (Resolved) s/p PPD # 1 1. routine post delivery care 2. breast feeding- support given 3. rh negative 4. rubella immune
[2020-08-10] MEDS: Naproxen 250 MG Tablet 500 MG PO (12:49)
[2020-08-10] MEDS: Senna/Docusate Sodium 1 Tablet PO (12:49)
[2020-08-10 13:15] VITALS: BP 129/50; PULSE 100; RESP 16; TEMP 36.2
[2020-08-10 20:08] VITALS: BP 127/69; PULSE 99; RESP 16; TEMP 36.5
[2020-08-11 03:02] VITALS: BP 112/52; PULSE 89; RESP 16; TEMP 36.3
[2020-08-11] MEDS: Naproxen 250 MG Tablet 500 MG PO ×2 (03:10→10:07)
[2020-08-11 08:20] VITALS: BP 133/71; PULSE 99; RESP 20; TEMP 36.1
[2020-08-11] MEDS: Senna/Docusate Sodium 1 Tablet PO (10:07)
--- NOTE | 2020-08-11 12:56 | CASEMGMT ---
SOCIAL WORK Report called to Dee with [facility] regarding MOB's use of THC during . Awaiting meconium results. Galen Rivas, ESTIMATION MANAGER, DEPUTY PROBATION OFFICER
== END 2020-08-11 11:20 | disposition home or self-care (01) | DRG 806 ==
PROVIDERS: Obstetrics & Gynecology; Admitting Provider Obstetrics & Gynecology; PCP Family Medicine; Visit Provider Obstetrics & Gynecology
DX: O48.0 Post-term pregnancy (principal); O99.824 Streptococcus B carrier state complicating childbirth; O70.0 First degree perineal laceration during delivery; O99.324 Drug use complicating childbirth; F12.10 Cannabis abuse, uncomplicated; O99.52 Diseases of the respiratory system complicating childbirth; J45.909 Unspecified asthma, uncomplicated; O99.344 Other mental disorders complicating childbirth; O99.214 Obesity complicating childbirth; E66.9 Obesity, unspecified; O99.334 Smoking (tobacco) complicating childbirth; F17.210 Nicotine dependence, cigarettes, uncomplicated; Z3A.41 41 weeks gestation of pregnancy; Z37.0 Single live birth
CPT/HCPCS: 59025; 59050; 80307; 85025; 86850; 86900; 86901; 87426; 99218; J7030; J7120; A4216; G0378; J2405

== ENCOUNTER 2021-03-17 17:10 | Emergency (ER) | payer OTHER, MEDICAID, SELFPAY ==
[2021-03-17 17:11] VITALS: BP 139/83; PULSE 118; RESP 18; TEMP 36.8; O2SAT 96; BMI 45.3
[2021-03-17 17:35] VITALS: PULSE 120; RESP 18
[2021-03-17] MEDS: Ipratropium/Albuterol Sulfate 3 ML AMPUL.NEB INHALATION (17:36)
[2021-03-17 17:41] VITALS: O2SAT 95
[2021-03-17] MEDS: predniSONE 20 MG Tablet 60 MG PO (17:54)
--- NOTE | 2021-03-17 17:55 | RAD_ITS ---
STUDY: X-RAY CHEST REASON FOR EXAM: Female, 21 years old. Cough. TECHNIQUE: Single AP portable view of the chest. COMPARISON: None. FINDINGS: The lungs are clear and expanded. There is no demonstrated pleural abnormality. Normal size heart. Normal mediastinum and vashti. Normal visualized pulmonary arteries. Normal visualized aortic arch and descending thoracic aorta. Normal visualized thoracic spine. Normal visualized ribs, clavicles, and shoulders. There is no demonstrated abnormality of the visualized soft tissue structures of the upper abdomen. RAD/Chest 1 View (Portable) IMPRESSION: Normal x-ray examination of the chest. Electronically Signed: Usman Borden DO at 19:03 EDT Tel [phone], Service support ,
--- NOTE | 2021-03-17 18:25 | ED.VIS.DYS ---
HPI History of Present Illness Chief Complaint: Shortness of Breath Informant: patient Narrative Narrative: Presents with worsening shortness of breath wheezing since yesterday. Mild productive cough since yesterday. No fevers or headache. No vomiting or diarrhea. No loss of taste or smell. Nonvaccinated with Covid. Denies sick contacts. History of asthma and tobacco. States does get flares yearly. No history of diabetes. Denies recent travel, surgeries, or immobilizations. No history of PE or DVT. Took her inhaler prior to arrival. Prior similar symptoms: Yes [facility] Medical History (Updated 03/17/21 @ 19:[address] Ricky Mercedes DO) Anxiety Asthma Diarrhea SOB (shortness of breath) Home Medications albuterol sulfate [ProAir HFA] 2 puff INHALATION Q6H PRN 03/17/21 [History Last Taken Unknown] albuterol sulfate [Ventolin HFA] 1 - 2 puff INHALATION Q4H PRN PRN #1 inhaler 03/17/21 [Rx Last Taken Unknown] prednisone 60 mg PO DAILY #12 tab 03/17/21 [Rx Last Taken Unknown] Allergy/AdvReac Type Severity Reaction Status Date / Time No Known Allergies Allergy Verified 03/17/21 17:11 Family History Mother Heart disease, Onset Age: 58 Myocardial infarction Father Heart disease Myocardial infarction, Onset Age: 57 Other Asthma Cancer Diabetes Social History Smoking Status: Current every day smoker tobacco type: e-cigarettes Electronic Cigarette Use: with nicotine alcohol intake: never substance use type: marijuana caffeine: Yes what type of physical activity do you participate in: none seatbelt use: always do you feel safe at home: Yes additional social history: Patient works at [employer]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 ROS ROS ED Constitutional Constitutional ED: Denies chills, fever(s) or sweats Eyes Eyes: Denies change in vision ENT ENT ED: Denies dysphagia or sore throat Cardiovascular Cardiovascular: Denies chest pain, leg edema, palpitations or racing heartbeat Respiratory/Chest Respiratory/Chest: Reports cough and dyspnea; Denies dyspnea on exertion Gastrointestinal Gastrointestinal: Denies abdominal pain, diarrhea, nausea or vomiting Genitourinary Genitourinary ED: Denies dysuria, hematuria or urinary frequency Musculoskeletal Musculoskeletal: Denies back pain, extremity pain or neck pain Integumentary Denies rash or wounds Neurologic Neurologic: Denies headache(s), paresthesias or weakness EXAM Physical Exam Const Vital Signs: 03/17/21 17:11 03/17/21 17:35 03/17/21 17:41 Temperature 98.2 F Temperature Source Temporal Pulse Rate 118 H 120 H Respiratory Rate 18 18 Respiratory Effort Short of Breath Respiratory Depth Normal Respiratory Pattern Normal Blood Pressure 139/83 H Blood Pressure Mean 101 Pulse Ox 96 Oxygen Delivery Method Room Air Room Air Oxygen Flow Rate (L/min) 95 03/17/21 19:08 Temperature Temperature Source Pulse Rate Respiratory Rate 17 Respiratory Effort Respiratory Depth Respiratory Pattern Blood Pressure Blood Pressure Mean Pulse Ox 97 Oxygen Delivery Method Oxygen Flow Rate (L/min) Positive well nourished and well developed General Appearance ED: well developed and NAD HEENT Reports moist mucous membranes normocephalic and atraumatic Eyes PERRL, EOMs intact bilaterally and conjunctivae normal General Eye ED: Yes normal appearance of both eyes Neck no lymphadenopathy and supple General: Negative for tenderness Chest Wall Chest: Negative for tenderness Resp normal air movement Resp Narrative: Expiratory wheezing noted. No respiratory distress. Effort and Inspection: symmetric chest movement; Negative for respiratory distress Cardio regular rhythm and no murmurs Rate: tachycardic Peripheral Pulses: pulses 2+ throughout GI normal to inspection, nondistended, normoactive bowel sounds and non-tender Palpation: Negative for guarding or rebound tenderness present Back/Spine no CVA tenderness and no thoracic nor lumbar tenderness Extremity normal to inspection General Extremety ED: Negative for edema or tenderness General Extremity: Negative for edema Neuro oriented x3 and no sensory deficits noted Sensorium / Orientation: awake and alert Skin no rashes or lesions noted and no wounds MDM MDM MDM Narrative Medical decision making narrative: Patient pulse ox 96% tachycardic however status post her inhaler use. She has had no respiratory distress expiratory wheezing on exam. She is started on prednisone aerosol treatment. Chest x-ray reviewed by myself shows no acute process. Covid testing negative. Reevaluation improved wheezing on exam. She is still tachycardic however no respiratory distress, with her asthma and wheezing lower suspicion for PE. Patient refilled her inhaler for additional days of steroids discussed viral syndrome with asthma exacerbation. Tobacco cessation discussed. She will follow-up with her PCP. Return precautions discussed. All questions were answered. Radiography Chest X-Ray - ED: 1 View, Read by ED Physician and No Acute Disease Diagnostic Testing: Clinical Impression(s) from Imaging Studies Chest X-Ray 03/17/21 17:55 IMPRESSION: Normal x-ray examination of the chest. Electronically Signed: Usman Borden DO at 19:03 EDT Tel [phone], Service support , Discharge Plan Triage Chief Complaint: Shortness of Breath ED Provider: Ricky Mercedes Dx/Rx/DC Orders Clinical Impression: Asthma exacerbation, URI, acute, Tobacco dependence Instructions: Asthma in Older Adults, ED URI, Viral, No Abx (Adult) Prescriptions: New prednisone 20 MG tablet 60 mg PO DAILY Qty: 12 RF: 0 albuterol sulfate [Ventolin HFA] 1 INHALER inhaler 1 - 2 puff inhalation Q4H PRN PRN (Reason: Wheezing) Qty: 1 RF: 0 No Action albuterol sulfate [ProAir HFA] 90 mcg/actuation Hfa Aerosol Inhaler 2 puff INHALATION Q6H PRN (Reason: SOB) RF: 0 Primary Care Provider: Sean Carl Referrals: Sean Carl MD [Primary Care Provider] - 3-5 Days if not improving Disposition Disposition: Home, Self Care Discharge Date/Time: 03/17/21 19:09
[2021-03-17 19:08] VITALS: RESP 17; O2SAT 97
== END 2021-03-17 19:09 | disposition home or self-care (01) ==
PROVIDERS: Emergency Provider Emergency Medicine; PCP Family Medicine
DX: J45.901 Unspecified asthma with (acute) exacerbation (principal); J06.9 Acute upper respiratory infection, unspecified; Z20.822 Contact with and (suspected) exposure to COVID-19; F41.9 Anxiety disorder, unspecified; F17.290 Nicotine dependence, other tobacco product, uncomplicated; Z79.899 Other long term (current) drug therapy
CPT/HCPCS: 71045; 87426; 94640; 99283

== ENCOUNTER 2021-03-19 17:52 | Emergency (ER) | payer OTHER, MEDICAID, SELFPAY ==
[2021-03-19 17:53] VITALS: BP 128/100; PULSE 100; RESP 25; TEMP 36.4; O2SAT 95; BMI 100.3
[2021-03-19 18:52] VITALS: O2SAT 97
[2021-03-19 19:32] VITALS: PULSE 92; RESP 20; RESP 22; O2SAT 97
[2021-03-19] MEDS: Ipratropium/Albuterol Sulfate 3 ML AMPUL.NEB INHALATION ×2 (19:32→21:34)
[2021-03-19] MEDS: Albuterol 2.5 MG/3 ML VIAL.NEB. INHALATION (19:33)
--- NOTE | 2021-03-19 20:02 | CPS ---
x1 Albuterol given to pt. in ER as well
[2021-03-19 20:03] VITALS: RESP 18
--- NOTE | 2021-03-19 21:30 | EX.ED.DYSGE1 ---
HPI History of Present Illness Chief Complaint: Asthma Narrative Narrative: Patient is a 21-year-old female with past medical history of asthma. She was seen in the ER on Tuesday and had a work obtained which showed no obvious pneumonia negative Covid no signs of heart damage. She states she has been on steroids and albuterol inhaler but has had minimal symptom improvement and secondary to this comes in for repeat evaluation. [facility] Medical History (Updated 03/19/21 @ 21:[address] Ezra Weston DO) Anxiety Asthma Diarrhea SOB (shortness of breath) Home Medications albuterol sulfate [ProAir HFA] 2 puff INHALATION Q6H PRN 03/17/21 [History Last Taken Unknown] albuterol sulfate [Ventolin HFA] 1 - 2 puff INHALATION Q4H PRN PRN #1 inhaler 03/17/21 [Rx Last Taken Unknown] prednisone 60 mg PO DAILY #12 tab 03/17/21 [Rx Last Taken Unknown] albuterol sulfate 2.5 mg INHALATION Q4H PRN #180 ml 03/19/21 [Rx Last Taken Unknown] ipratropium-albuterol 3 ml INHALATION Q6H PRN #180 ml 03/19/21 [Rx Last Taken Unknown] nebulizer and compressor #1 ea 03/19/21 [Rx Last Taken Unknown] Allergy/AdvReac Type Severity Reaction Status Date / Time No Known Allergies Allergy Verified 03/19/21 17:52 Family History Mother Heart disease, Onset Age: 58 Myocardial infarction Father Heart disease Myocardial infarction, Onset Age: 57 Other Asthma Cancer Diabetes Social History Smoking Status: Current every day smoker tobacco type: e-cigarettes Electronic Cigarette Use: with nicotine alcohol intake: never substance use type: marijuana caffeine: Yes what type of physical activity do you participate in: none seatbelt use: always do you feel safe at home: Yes additional social history: Patient works at [employer]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 ROS ROS ED Constitutional Constitutional ED: Denies chills or fever(s) ENT ENT ED: Reports rhinorrhea and sore throat Cardiovascular Cardiovascular: Denies chest pain Respiratory/Chest Respiratory/Chest: Reports cough and dyspnea Gastrointestinal Gastrointestinal: Denies abdominal pain, diarrhea, nausea or vomiting Genitourinary Genitourinary ED: Denies dysuria Musculoskeletal Musculoskeletal: Denies myalgias Integumentary Denies rash Neurologic Neurologic: Denies headache(s) Hematologic/Lymphatic Hematologic/Lymphatic: Denies easy bleeding or easy bruising EXAM Physical Exam Const Vital Signs: 03/19/21 17:53 03/19/21 18:52 03/19/21 19:32 Temperature 97.5 F L Temperature Source Temporal Pulse Rate 100 92 Respiratory Rate 25 H 22 H Respiratory Effort Non-Labored Short of Breath Short of Breath Respiratory Depth Normal Normal Respiratory Pattern Normal Tachypnea Blood Pressure 128/100 H Blood Pressure Mean 109 Pulse Ox 95 97 Oxygen Delivery Method Room Air Room Air Room Air 03/19/21 20:03 Temperature Temperature Source Pulse Rate Respiratory Rate 18 Respiratory Effort Respiratory Depth Respiratory Pattern Blood Pressure Blood Pressure Mean Pulse Ox Oxygen Delivery Method Positive well nourished and well developed General Appearance ED: well developed HEENT HEENT Narrative: Cobblestoning the posterior pharynx consistent with sinus drainage but no airway edema or compromise Eyes PERRL and EOMs intact bilaterally Neck supple and no JVD Neck Narrative: Positive anterior cervical lymphadenopathy noted Chest Wall palpation of chest normal Resp Resp Narrative: Breath sounds are diminished throughout with diffuse inspiratory and expiratory wheezing but no signs of acute distress Cardio regular rate and regular rhythm GI normal to inspection, nondistended, normoactive bowel sounds, non-tender, non-distended and no masses Auscultation: normoactive bowel sounds Palpation: soft Extremity normal to inspection Extremity Narrative: No asymmetric edema no pitting edema negative Homans' sign bilaterally Neuro oriented x3 and CN's II-XII intact bilaterally Sensorium / Orientation: alert Motor Exam: strength 5/5 throughout Psych mental status grossly normal Skin no rashes or lesions noted MDM MDM MDM Narrative Medical decision making narrative: Patient presented to the ER with a stable room air pulse ox. Her history and exam is consistent with a viral infection leading to asthma exacerbation. As she is recently had a Covid swab chest x-ray and blood work I do not feel need to repeat this. Patient was given DuoNeb and albuterol treatments and on reevaluation reported feeling better and her breath sounds had improved. Therefore at this time I feel patient is safe for discharge but I will have her continue her prednisone but transition her to a nebulizer albuterol and DuoNeb to help control her symptoms. Discharge Plan Triage Chief Complaint: Asthma ED Provider: Ezra Weston Dx/Rx/DC Orders Clinical Impression: Asthma exacerbation Instructions: Asthma Action Plan, Asthma Prescriptions: New ipratropium-albuterol 0.5 mg-3 mg(2.5 mg base)/3 mL solution for nebulization 3 ml inhalation Q6H PRN (Reason: shortness of breath or wheezing) Qty: 180 RF: 0 albuterol sulfate 2.5 mg /3 mL (0.083 %) solution for nebulization 2.5 mg inhalation Q4H PRN (Reason: shortness of breath or wheezing) Qty: 180 RF: 0 (DME) nebulizer and compressor Device See Rx Instructions .ROUTE .MEDSUPPLY Qty: 1 RF: 0 No Action albuterol sulfate [ProAir HFA] 90 mcg/actuation Hfa Aerosol Inhaler 2 puff INHALATION Q6H PRN (Reason: SOB) RF: 0 prednisone 20 MG tablet 60 mg PO DAILY Qty: 12 RF: 0 albuterol sulfate [Ventolin HFA] 1 INHALER inhaler 1 - 2 puff inhalation Q4H PRN PRN (Reason: Wheezing) Qty: 1 RF: 0 Primary Care Provider: Sean Carl Referrals: Sean Carl MD [Primary Care Provider] - Disposition Disposition: Home, Self Care
--- NOTE | 2021-03-19 21:49 | CPS ---
Duoneb aerosol breathing tx. given to pt. at 2134. 102HR/18BPM with slight expiratory wheezes pre-assessment. 98HR/20BPM with cleared breath sounds with slight expiratory wheezes in upper lobe lung martin post-assessment.
[2021-03-19 21:50] VITALS: BP 142/86; PULSE 87; RESP 18; O2SAT 98
== END 2021-03-19 21:51 | disposition home or self-care (01) ==
PROVIDERS: Emergency Provider Emergency Medicine; PCP Family Medicine
DX: J45.901 Unspecified asthma with (acute) exacerbation (principal); Z79.899 Other long term (current) drug therapy; F17.290 Nicotine dependence, other tobacco product, uncomplicated
CPT/HCPCS: 94640; 99251; 99282; G0463

== ENCOUNTER → 2022-03-03 | Outpatient (CLI) | payer MEDICAID, SELFPAY | END | disposition home or self-care (01) | LOC: MFPLAB 16:25 | PROVIDERS: PCP Family Medicine; Referring Provider Family Medicine; Visit Provider Family Medicine | DX: R76.12 Nonspecific reaction to cell mediated immunity measurement of gamma interferon antigen response without active tuberculosis (principal) | CPT/HCPCS: 86480; 36415 ==

== ENCOUNTER 2023-01-08 17:26 | Emergency (ER) | payer OTHER, MEDICAID, SELFPAY ==
[2023-01-08 17:27] VITALS: BP 142/98; PULSE 88; RESP 18; TEMP 35.9; O2SAT 99; BMI 41.9
[2023-01-08] MEDS: Ipratropium/Albuterol Sulfate 3 ML AMPUL.NEB INHALATION (17:57)
[2023-01-08 18:02] VITALS: PULSE 90; RESP 18; O2SAT 97
--- NOTE | 2023-01-08 19:03 | ED.VIS.DYS ---
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 She walked into the walk-in cooler and sat there for 15 minutes and it really helped, but then she got too cold to remain there, came back out into the heat where she progressed. Now that she is here in the air conditioner she is feeling much better but still wheezy and a little tight. She denies any recent illness. No other symptoms. She did not have access to her inhaler, her significant other brought it and it did not seem to help much, albuterol rescue inhaler. [facility] Medical History (Updated 01/08/23 @ 19:[address] James Jeong MD) Anxiety Asthma Diarrhea SOB (shortness of breath) Home Medications albuterol sulfate 90 mcg/actuation aerosol inhaler (ProAir HFA) 2 puff inhalation Q6H PRN SOB 03/17/21 [History Last Taken Unknown] albuterol sulfate 90 mcg/actuation aerosol inhaler (Ventolin HFA) 1 - 2 puff inhalation Q4H PRN PRN Wheezing ##1 03/17/21 [Rx Last Taken Unknown] prednisone 20 mg tablet 60 mg (3 x 20 mg) PO DAILY #12 tabs 03/17/21 [Rx Last Taken Unknown] albuterol sulfate 2.5 mg/3 mL (0.083 %) solution for nebulization 2.5 mg (3 mL) inhalation Q4H PRN shortness of breath or wheezing #180 mL 03/19/21 [Rx Last Taken Unknown] ipratropium 0.5 mg-albuterol 3 mg (2.5 mg base)/3 mL nebulization soln 3 ml inhalation Q6H PRN shortness of breath or wheezing #180 mL 03/19/21 [Rx Last Taken Unknown] nebulizer and compressor #1 ea 03/19/21 [Rx Last Taken Unknown] Allergy/AdvReac Type Severity Reaction Status Date / Time No Known Allergies Allergy Verified 01/08/23 17:27 Family History Mother Heart disease, Onset Age: 58 Myocardial infarction Father Heart disease Myocardial infarction, Onset Age: 57 Other Asthma Cancer Diabetes Social History Smoking Status: Current every day smoker tobacco type: e-cigarettes Electronic Cigarette Use: with nicotine alcohol intake: never substance use type: marijuana caffeine: Yes what type of physical activity do you participate in: none seatbelt use: always do you feel safe at home: Yes additional social history: Patient works at [employer]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 ROS ROS ED Constitutional Constitutional ED: Denies chills or fever(s) ENT ENT ED: Denies rhinorrhea or sore throat Cardiovascular Cardiovascular: Denies chest pain, racing heartbeat or syncope Respiratory/Chest Respiratory/Chest: Reports dyspnea and wheezing Integumentary Denies abscess or rash EXAM Physical Exam Const Vital Signs: 01/08/23 17:27 01/08/23 18:02 01/08/23 18:02 Temperature 96.6 F L Temperature Source Temporal Pulse Rate 88 Respiratory Rate 18 Respiratory Effort Normal Non-Labored Respiratory Depth Normal Respiratory Pattern Normal Blood Pressure 142/98 H Blood Pressure Mean 112 Pulse Ox 99 97 Oxygen Delivery Method Room Air Room Air Room Air 01/08/23 18:02 Temperature Temperature Source Pulse Rate 90 Respiratory Rate 18 Respiratory Effort Respiratory Depth Respiratory Pattern Normal Blood Pressure Blood Pressure Mean Pulse Ox Oxygen Delivery Method Positive well nourished and well developed General Appearance ED: well developed HEENT Reports moist mucous membranes Eyes PERRL and EOMs intact bilaterally Resp normal respiratory effort Resp Narrative: Diffuse expiratory wheezes bilaterally equal breath sounds bilaterally, trachea midline. No distress. Speaking in full sentences. No rales or rhonchi. Cardio regular rate, regular rhythm and no murmurs Rate: Negative for tachycardic Neuro oriented x3, CN's II-XII intact bilaterally and no sensory deficits noted Gait (Neuro): normal gait Psych mental status grossly normal Mood & Affect: anxious Skin no wounds and skin turgor normal Rashes: no rashes MDM MDM MDM Narrative Medical decision making narrative: Doing much better after doing nebulizer treatment. We will give her another albuterol prior to discharge, I am not concerned about pneumonia here I think it was due to the ambient environment and humidity. We will give her a dose of steroids, she opts for Kenalog as opposed to a prescription of prednisone, she was given 40 mg IM, and discharged with a work note. Discharge Plan Triage Chief Complaint: Asthma ED Provider: James Jeong Dx/Rx/DC Orders Clinical Impression: Acute asthma exacerbation Instructions: Asthma Action Plan Prescriptions: No Action albuterol sulfate [ProAir HFA] 90 mcg/actuation Hfa Aerosol Inhaler 2 puff INHALATION Q6H PRN (Reason: SOB) prednisone 20 MG tablet 60 mg PO DAILY Qty: 12 0RF albuterol sulfate [Ventolin HFA] 1 INHALER inhaler 1 - 2 puff inhalation Q4H PRN PRN (Reason: Wheezing) Qty: 1 0RF ipratropium-albuterol 0.5 mg-3 mg(2.5 mg base)/3 mL solution for nebulization 3 ml inhalation Q6H PRN (Reason: shortness of breath or wheezing) Qty: 180 0RF albuterol sulfate 2.5 mg /3 mL (0.083 %) solution for nebulization 2.5 mg inhalation Q4H PRN (Reason: shortness of breath or wheezing) Qty: 180 0RF (DME) nebulizer and compressor Device See Rx Instructions .ROUTE .MEDSUPPLY Qty: 1 0RF Rx Instructions: As directed Stand Alone Forms: ED Work / School Excuse Primary Care Provider: Sean Carl Referrals: Sean Carl MD [Primary Care Provider] - As Needed Disposition Disposition: Home, Self Care
[2023-01-08 19:12] VITALS: PULSE 98; RESP 18
[2023-01-08] MEDS: Albuterol 2.5 MG/3 ML VIAL.NEB. INHALATION (19:12)
[2023-01-08] MEDS: Triamcinolone Acetonide 40 MG/ML Vial IM (19:25)
[2023-01-08 19:26] VITALS: BP 123/73; PULSE 78; RESP 18; O2SAT 99
== END 2023-01-08 19:53 | disposition home or self-care (01) ==
PROVIDERS: Emergency Provider Emergency Medicine; PCP Family Medicine; Visit Provider Emergency Medicine
DX: J45.901 Unspecified asthma with (acute) exacerbation (principal); F17.290 Nicotine dependence, other tobacco product, uncomplicated
CPT/HCPCS: 94640; 96372; 99282

== ENCOUNTER 2023-08-26 09:29 | Emergency (ER) | payer OTHER, SELFPAY ==
[2023-08-26 09:30] VITALS: BP 133/74; PULSE 104; RESP 20; TEMP 36.4; O2SAT 97; BMI 44.2
[2023-08-26 09:31] VITALS: BP 133/74; PULSE 100; RESP 18; TEMP 36.6; O2SAT 97
--- NOTE | 2023-08-26 09:48 | EDS_ITS ---
HPI History of Present Illness Chief Complaint: General Illness Informant: patient Narrative Narrative: Patient reports waking this morning with scratchy throat, congestion, body aches. She is having chills but did not measure a fever at home. She has taken DayQuil this morning. She reports she felt well when she went to bed last night. [facility] Medical History (Updated 08/26/23 @ 11:[address] Vanda Segovia MD) Anxiety Asthma Home Medications albuterol sulfate 90 mcg/actuation aerosol inhaler (ProAir HFA) 2 puff inhalatio n Q6H PRN SOB 03/17/21 [History Last Taken Unknown] albuterol sulfate 90 mcg/actuation aerosol inhaler (Ventolin HFA) 1 - 2 puff inhalation Q4H PRN PRN Wheezing ##1 03/17/21 [Rx Last Taken Unknown] prednisone 20 mg tablet 60 mg (3 x 20 mg) PO DAILY #12 tabs 03/17/21 [Rx Last Taken Unknown] albuterol sulfate 2.5 mg/3 mL (0.083 %) solution for nebulization 2.5 mg (3 mL) inhalation Q4H PRN shortness of breath or wheezing #180 mL 03/19/21 [Rx Last Taken Unknown] ipratropium 0.5 mg-albuterol 3 mg (2.5 mg base)/3 mL nebulization soln 3 ml inhalation Q6H PRN shortness of breath or wheezing #180 mL 03/19/21 [Rx Last Taken Unknown] nebulizer and compressor #1 ea 03/19/21 [Rx Last Taken Unknown] oseltamivir 75 mg capsule (Tamiflu) 75 mg PO BID 5 days #10 caps 08/26/23 [Rx Last Taken Unknown] Allergy/AdvReac Type Severity Reaction Status Date / Time No Known Allergies Allergy Verified 08/26/23 09:32 Family History Mother Heart disease, Onset Age: 58 Myocardial infarction Father Heart disease Myocardial infarction, Onset Age: 57 Other Asthma Cancer Diabetes Social History Smoking Status: Current every day smoker tobacco type: e-cigarettes Electronic Cigarette Use: with nicotine alcohol intake: never substance use type: marijuana caffeine: Yes what type of physical activity do you participate in: none seatbelt use: always do you feel safe at home: Yes additional social history: 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[place] zuleta FOBettie ROS ROS ED Constitutional Constitutional ED: Reports chills Eyes Eyes: Denies change in vision or discharge from eye(s) ENT ENT ED: Reports sore throat and other Details: Congestion ; Denies discharge from eye(s) or rhinorrhea Cardiovascular Cardiovascular: Denies chest pain or palpitations Respiratory/Chest Respiratory/Chest: Denies cough or dyspnea Gastrointestinal Gastrointestinal: Denies abdominal pain, nausea or vomiting Genitourinary Genitourinary ED: Denies dysuria Musculoskeletal Musculoskeletal: Reports myalgias; Denies back pain or extremity pain Integumentary Denies Abrasions or rash Neurologic Neurologic: Denies headache(s) or weakness Allergic/Immunologic Allergic/Immunologic ED: Denies lip swelling or urticaria EXAM Physical Exam Const Vital Signs: 08/26/23 09:30 08/26/23 09:31 Temperature 97.5 F L 97.9 F Temperature Source Temporal Temporal Pulse Rate 104 H 100 Respiratory Rate 20 H 18 Blood Pressure 133/74 H 133/74 H Blood Pressure Mean 93 93 Pulse Ox 97 97 Oxygen Delivery Method Room Air Room Air Positive well nourished and well developed General Appearance ED: well developed HEENT Reports moist mucous membranes HEENT Narrative: 2+ tonsils with erythema and posterior pharyngeal drainage. Uvula midline. Patient speaking with a strong voice and tolerating secretions well. Eyes EOMs intact bilaterally Chest Wall inspection of chest normal and palpation of chest normal Resp normal respiratory effort and clear to auscultation bilaterally Cardio regular rate and regular rhythm GI non-tender Palpation: soft Extremity normal to inspection Neuro oriented x3 and no sensory deficits noted Motor Exam: strength 5/5 throughout Psych mental status grossly normal Skin no rashes or lesions noted MDM MDM MDM Narrative Medical decision making narrative: Patient given a dose of naproxen here. Swab for strep as well as COVID/influenza/RSV obtained. History & Record Review Discussion w/independent historian: Patient Lab Data Attestation: I reviewed the patient's lab results. Treatment and Re-Evaluation :: Rapid strep test is negative. COVID and RSV test is negative. She does test positive for influenza B. Test results discussed with the patient. Given her underlying asthma we will treat her with a course of Tamiflu, first dose given here. Discharge Plan Triage Chief Complaint: General Illness ED Provider: Vanda Segovia Dx/Rx/DC Orders Clinical Impression: Influenza B Instructions: ED Influenza (Adult) Prescriptions: New oseltamivir [Tamiflu] 75 mg capsule 75 mg PO BID 5 Days Qty: 10 0RF No Action albuterol sulfate [ProAir HFA] 90 mcg/actuation Hfa Aerosol Inhaler 2 puff INHALATION Q6H PRN (Reason: SOB) prednisone 20 MG tablet 60 mg PO DAILY Qty: 12 0RF albuterol sulfate [Ventolin HFA] 1 INHALER inhaler 1 - 2 puff inhalation Q4H PRN PRN (Reason: Wheezing) Qty: 1 0RF ipratropium-albuterol 0.5 mg-3 mg(2.5 mg base)/3 mL solution for nebulization 3 ml inhalation Q6H PRN (Reason: shortness of breath or wheezing) Qty: 180 0RF albuterol sulfate 2.5 mg /3 mL (0.083 %) solution for nebulization 2.5 mg inhalation Q4H PRN (Reason: shortness of breath or wheezing) Qty: 180 0RF (DME) nebulizer and compressor Device See Rx Instructions .ROUTE .MEDSUPPLY Qty: 1 0RF Rx Instructions: As directed Stand Alone Forms: ED Work / School Excuse Primary Care Provider: Sean Carl Referrals: Sean Carl MD [Primary Care Provider] - 1-2 Weeks Disposition Disposition: Home, Self Care
[2023-08-26] MEDS: Naproxen 500 MG Tablet PO (09:51)
[2023-08-26] MEDS: Oseltamivir Phosphate 75 MG Capsule PO (11:08)
[2023-08-26 11:11] VITALS: BP 120/84; PULSE 87; RESP 16; TEMP 36.8; O2SAT 99
== END 2023-08-26 11:11 | disposition home or self-care (01) ==
PROVIDERS: Emergency Provider Emergency Medicine; PCP Family Medicine; Visit Provider Emergency Medicine
DX: J10.1 Influenza due to other identified influenza virus with other respiratory manifestations (principal); J45.909 Unspecified asthma, uncomplicated; F41.9 Anxiety disorder, unspecified; F17.290 Nicotine dependence, other tobacco product, uncomplicated; Z79.899 Other long term (current) drug therapy
CPT/HCPCS: 87631; 87651; 99282

== ENCOUNTER 2023-12-09 11:50 | Emergency (ER) | payer OTHER, SELFPAY ==
[2023-12-09 11:52] VITALS: BP 133/90; PULSE 115; RESP 16; TEMP 36.9; O2SAT 95
--- NOTE | 2023-12-09 12:30 | EX.ED.DYSGE1 ---
HPI History of Present Illness Chief Complaint: Nausea/Vomiting/Diarrhea Informant: patient Onset/Context/Timing Onset: Today Narrative Narrative: Patient presents secondry to nausea, vomiting, and diarrhea. Patient states that she woke multiple times during the night with nausea, vomiting, diarrhea. Initial episode did not have any blood associated. Second time she vomited she vomited bright red blood. She reports subjective fevers and chills. She states she has body aches. She ate around 6 PM last evening and felt well until about 2 AM when she woke up sick. [facility] Medical History (Updated 12/09/23 @ 15:[address] Vanda Segovia MD) Hx of gastroesophageal reflux (GERD) Anxiety Asthma Home Medications ?Medication ?Instructions ?Recorded ?Last Taken ?Type albuterol sulfate 90 mcg/actuation 2 puff inhalation Q6H PRN SOB 03/17/21 Unknown History aerosol inhaler (ProAir HFA) albuterol sulfate 90 mcg/actuation 1 - 2 puff inhalation Q4H PRN PRN 03/17/21 Unknown Rx aerosol inhaler (Ventolin HFA) Wheezing ##1 prednisone 20 mg tablet 60 mg (3 x 20 mg) PO DAILY #12 tabs 03/17/21 Unknown Rx albuterol sulfate 2.5 mg/3 mL 2.5 mg (3 mL) inhalation Q4H PRN 03/19/21 Unknown Rx (0.083 %) solution for nebulization shortness of breath or wheezing #180 mL ipratropium 0.5 mg-albuterol 3 mg 3 ml inhalation Q6H PRN shortness 03/19/21 Unknown Rx (2.5 mg base)/3 mL nebulization of breath or wheezing #180 mL soln nebulizer and compressor #1 ea 03/19/21 Unknown Rx oseltamivir 75 mg capsule (Tamiflu) 75 mg PO BID 5 days #10 caps 08/26/23 Unknown Rx dicyclomine 20 mg tablet 20 mg PO TID PRN abdominal pain 12/09/23 Unknown Rx #20 tabs ondansetron 4 mg disintegrating 4 mg PO Q8H PRN PRN Nausea #10 tabs 12/09/23 Unknown Rx tablet Allergy/AdvReac Type Severity Reaction Status Date / Time pineapple Allergy Severe Anaphylaxis Verified 12/09/23 11:52 Family History Mother Heart disease, Onset Age: 58 Myocardial infarction Father Heart disease Myocardial infarction, Onset Age: 57 Other Asthma Cancer Diabetes Social History Smoking Status: Current every day smoker tobacco type: e-cigarettes Electronic Cigarette Use: with nicotine alcohol intake: never substance use type: marijuana caffeine: Yes what type of physical activity do you participate in: none seatbelt use: always do you feel safe at home: Yes additional social history: Patient works at [employer]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 ROS ROS ED Constitutional Constitutional ED: Reports chills, fever(s) and subjective Eyes Eyes: Denies discharge from eye(s) ENT ENT ED: Reports sore throat; Denies discharge from eye(s) or rhinorrhea Cardiovascular Cardiovascular: Denies chest pain or palpitations Respiratory/Chest Respiratory/Chest: Denies cough or dyspnea Gastrointestinal Gastrointestinal: Reports abdominal pain, diarrhea, nausea and vomiting Genitourinary Genitourinary ED: Denies dysuria Musculoskeletal Musculoskeletal: Reports myalgias; Denies back pain or extremity pain Integumentary Denies Abrasions or rash Neurologic Neurologic: Reports weakness; Denies headache(s) Psychiatric Psychiatric: Reports anxiety; Denies depression Allergic/Immunologic Allergic/Immunologic ED: Denies lip swelling or urticaria EXAM Physical Exam Const Vital Signs: 12/09/23 11:52 12/09/23 13:13 12/09/23 15:08 Temperature 98.5 F 99.1 F Temperature Source Temporal Oral Pulse Rate 115 H 99 106 H Respiratory Rate 16 16 16 Blood Pressure 133/90 H 145/84 H 139/73 H Blood Pressure Mean 104 104 95 Pulse Ox 95 95 98 Oxygen Delivery Method Room Air Room Air Room Air 12/09/23 15:18 Temperature 97.9 F Temperature Source Pulse Rate 74 Respiratory Rate 16 Blood Pressure 106/53 L Blood Pressure Mean 70 Pulse Ox 98 Oxygen Delivery Method Positive well nourished and well developed General Appearance ED: well developed HEENT Reports moist mucous membranes Eyes EOMs intact bilaterally Chest Wall inspection of chest normal and palpation of chest normal Resp normal respiratory effort and clear to auscultation bilaterally Cardio regular rhythm Rate: tachycardic GI non-tender Auscultation: hypoactive bowel sounds Palpation: soft Extremity normal to inspection Neuro oriented x3 and no sensory deficits noted Motor Exam: strength 5/5 throughout Skin no rashes or lesions noted MDM MDM MDM Narrative Medical decision making narrative: IV line will be established. Patient will be given IV fluids, Zofran, Bentyl, and Protonix. Lab work will be obtained to evaluate for leukocytosis, anemia, electrolyte derangement. History & Record Review Discussion w/independent historian: Family and Significant other Lab Data Attestation: I reviewed the patient's lab results. Labs: Laboratory Results - last 24 hr 12/09/23 12:40 WBC 9.2 RBC 4.84 Hgb 13.5 Hct 40.8 MCV 84.3 MCH 27.9 MCHC 33.1 RDW Std Deviation 40.2 RDW Coeff of Swapna 13.1 Plt Count 260 MPV 10.4 Immature Gran % (Auto) 0.300 Neut % (Auto) 91.5 H Lymph % (Auto) 4.6 L [place] % (Auto) 2.9 Eos % (Auto) 0.4 Baso % (Auto) 0.3 Absolute Neuts (auto) 8.4 H Absolute Lymphs (auto) 0.42 L Nucleated RBC % 0 PT 13.4 INR 1.0 APTT 27.7 Sodium 138 Potassium 3.5 Chloride 105 Carbon Dioxide 25.0 Anion Gap 8 BUN 10 Creatinine 0.74 Estim Creat Clear Calc 162.26 Est GFR (MDRD) Af Amer 123 Est GFR (MDRD) Non-Af 102 BUN/Creatinine Ratio 13.6 Glucose 115 H Calcium 8.1 L Total Bilirubin 0.70 Direct Bilirubin 0.19 AST 16 ALT 24 Alkaline Phosphatase 102 Total Protein 6.9 Albumin 3.4 Globulin 3.5 Lipase 14 Serum , Qual NEGATIVE Treatment and Re-Evaluation :: CBC reveals normal white count at 9.2 with 91% neutrophils. This is likely demargination from acute vomiting. Chemistry studies significant only for a glucose of 115. LFTs and lipase are normal. test is negative. On repeat evaluation she does feel improved. She is tolerating po fluids. She will be given a prescription for Zofran and Bentyl at home. She will follow a bland diet and slowly advance as tolerated. Return instructions are given. Discharge Plan Triage Chief Complaint: Nausea/Vomiting/Diarrhea ED Provider: Segovia,Vanda Dx/Rx/DC Orders Clinical Impression: Gastroenteritis Instructions: ED Gastroenteritis, Viral (Adult) Prescriptions: New ondansetron 4 mg tablet,disintegrating 4 mg PO Q8H PRN PRN (Reason: Nausea) Qty: 10 0RF dicyclomine 20 mg tablet 20 mg PO TID PRN (Reason: abdominal pain) Qty: 20 0RF No Action albuterol sulfate [ProAir HFA] 90 mcg/actuation Hfa Aerosol Inhaler 2 puff INHALATION Q6H PRN (Reason: SOB) prednisone 20 MG tablet 60 mg PO DAILY Qty: 12 0RF albuterol sulfate [Ventolin HFA] 1 INHALER inhaler 1 - 2 puff inhalation Q4H PRN PRN (Reason: Wheezing) Qty: 1 0RF ipratropium-albuterol 0.5 mg-3 mg(2.5 mg base)/3 mL solution for nebulization 3 ml inhalation Q6H PRN (Reason: shortness of breath or wheezing) Qty: 180 0RF albuterol sulfate 2.5 mg /3 mL (0.083 %) solution for nebulization 2.5 mg inhalation Q4H PRN (Reason: shortness of breath or wheezing) Qty: 180 0RF (DME) nebulizer and compressor Device See Rx Instructions .ROUTE .MEDSUPPLY Qty: 1 0RF Rx Instructions: As directed oseltamivir [Tamiflu] 75 mg capsule 75 mg PO BID 5 Days Qty: 10 0RF Stand Alone Forms: ED Work / School Excuse Primary Care Provider: Hugo Carl Referrals: Hugo Carl MD [Primary Care Provider] - 3-5 Days if not improving Print Language: Vietnamese Disposition Disposition: Home, Self Care Discharge Date/Time: 12/09/23 15:20
[2023-12-09 12:31] VITALS: BMI 44.5
[2023-12-09] MEDS: 0.9% Normal Saline (1000mL) 1,000 ML 1000 ML IV (12:45)
[2023-12-09] MEDS: Pantoprazole Sodium 40 MG in 0.9% Normal Saline (100mL MB+) 100 ML 330 MG IV (12:45)
[2023-12-09 12:46] LABS: Absolute Lymphocyte Count 0.42 X10^3/uL (0.83-4.51); Absolute Neutrophil Count 8.4 X10^3/uL (2.0-7.7); Basophil# 0.03 X10^3/uL; Basophil% 0.3 % (0-1); Eosinophil# 0.04 X10^3/uL; Eosinophils% 0.4 % (0-5); Hematocrit 40.8 % (37-47); Hemoglobin 13.5 g/dL (12.0-15.0); Lymphocyte # 0.42 X10^3/ul (0.83-4.51); Lymphocyte % 4.6 % (19-41); Mean Corp Hgb Conc 33.1 g/dL (32-36); Mean Corpuscular Hgb 27.9 pg (27.0-32.0); Mean Corpuscular Volume 84.3 fL (81-99); Mean Platelet Vol. 10.4 fl (6.2-12.0); Monocyte# 0.27 X10^3/uL; Monocyte% 2.9 % (0-10); NRBC Flagged by Analyzer 0 % (0-5); Neutrophil # 8.43 X10^3/uL (2.7-7.7); Neutrophil % 91.5 % (47-70); POSITIVE DIFFERENTIAL YES; Platelet Count 260 K/mm3 (150-450); RBC Distribution Width CV 13.1 % (11.6-14.6); RBC Distribution Width SD 40.2 fl (35.1-43.9); Red Blood Count 4.84 M/mm3 (4.2-5.4); White Blood Count 9.2 K/mm3 (4.4-11.0)
[2023-12-09] MEDS: Dicyclomine 20 MG/2 ML Vial IM (12:47)
[2023-12-09] MEDS: Ondansetron 4 MG/2 ML Vial IV (12:47)
[2023-12-09 12:59] LABS: Internal QC Validated? YES +Cl - CLEAR BKGD; Pregnancy, Serum, hCG Quali. NEGATIVE Negative
[2023-12-09 13:02] LABS: Partial Thromboplast Time 27.7 Seconds (24.1-36.2); Prothrombin Time (Protime)PT. 13.4 SECONDS (11.7-14.9)
[2023-12-09 13:08] LABS: AST(SGOT) 16 U/L (15-37); Alanine Aminotransfer ALT/SGPT 24 U/L (13-56); Albumin, Serum 3.4 g/dL (3.2-5.0); Alkaline Phosphatase 102 U/L (45-117); Anion Gap 8 (5-15); BUN 10 mg/dL (7-18); BUN/Creat Ratio 13.6 RATIO (10-20); Bilirubin, Direct 0.19 mg/dL (0.00-0.30); Calcium,Total 8.1 mg/dL (8.5-10.1); Chloride 105 mmol/L (98-107); Creatinine, Serum 0.74 mg/dL (0.55-1.02); EST Glomerular Filtration Rate 102 mL/min (>60); Est Glom Filt Rate - Afr Amer 123 mL/min (>60); Estimated Creatinine Clearance 162.26 ml/min; Globulin 3.5 g/dL (2.2-4.2); Glucose 115 mg/dL (74-106); Lipase 14 U/L (13-75); Potassium 3.5 mmol/L (3.5-5.1); Protein, Total 6.9 g/dL (6.4-8.2); Sodium Level 138 mmol/L (136-145)
[2023-12-09 13:13] VITALS: BP 145/84; PULSE 99; RESP 16; TEMP 37.3; O2SAT 95
[2023-12-09 15:08] VITALS: BP 139/73; PULSE 106; RESP 16; O2SAT 98
[2023-12-09 15:18] VITALS: BP 106/53; PULSE 74; RESP 16; TEMP 36.6; O2SAT 98
== END 2023-12-09 15:20 | disposition home or self-care (01) ==
PROVIDERS: Emergency Provider Emergency Medicine; PCP Family Medicine; Visit Provider Emergency Medicine
DX: K52.9 Noninfective gastroenteritis and colitis, unspecified (principal); F17.290 Nicotine dependence, other tobacco product, uncomplicated; J45.909 Unspecified asthma, uncomplicated; F41.9 Anxiety disorder, unspecified; Z79.899 Other long term (current) drug therapy
CPT/HCPCS: 80048; 80076; 83690; 84703; 85025; 85610; 85730; 96361; 96365; 96372; 96375; 99282; J7030; A4216; J2405

== ENCOUNTER 2024-09-03 16:08 | Emergency (ER) | payer SELFPAY ==
[2024-09-03] VITALS (8 sets, daily range): BP systolic 119–149; BP diastolic 78–93; PULSE 102–113; RESP 16–25; TEMP 36.4–36.8; O2SAT 95–99; BMI 43.7
[2024-09-03] MEDS: Ipratropium/Albuterol Sulfate 3 ML AMPUL.NEB INHALATION (16:15)
[2024-09-03] MEDS: Albuterol 2.5 MG/3 ML VIAL.NEB. INHALATION ×3 (16:20→18:50)
--- NOTE | 2024-09-03 16:23 | EKG12_ITS ---
Test Reason : SOB Blood Pressure : */* mmHG Vent. Rate : 105 BPM Atrial Rate : 105 BPM P-R Int : 170 ms QRS Dur : 94 ms QT Int : 342 ms P-R-T Axes : 78 62 31 degrees QTcB Int : 452 ms Sinus tachycardia Otherwise normal ECG Confirmed by Marty Law ([id number]), editor in chief newspaper KP SHARMA ([id number]) on 09/04/2024 11:29:44 AM Referred By: VIELKA/KEVON Confirmed By: Marty Law
--- NOTE | 2024-09-03 16:30 | ED.VIS.DYS ---
HPI History of Present Illness Chief Complaint: Asthma Informant: patient Onset/Context/Timing Onset: Today Context: gradual Timing: Continuous Quality: Positive for Wheezing Worsened by: Nothing Relieved by: Nothing Associated Symptoms cough; Negative for rhinorrhea, post nasal drip, fever, sore throat, chills, sweats, clear sputum, white sputum, yellow sputum or green sputum Narrative Narrative: Patient presents with shortness of breath he had began today. Patient states it is gradually gotten worse. Patient states it feels like her child is sitting on her chest. Patient states nothing makes it better and nothing makes it worse. Patient states she used her inhaler today and had some relief. Patient states that she was down to puffs on her inhaler and is now out of it. Patient admits to a cough but denies any sputum production. Patient denies any fevers or chills. Patient denies any sore throat. [facility] Medical History Hx of gastroesophageal reflux (GERD) Anxiety Asthma Home Medications ?Medication ?Instructions ?Recorded ?Last Taken ?Type albuterol sulfate 90 mcg/actuation 2 puff inhalation Q6H PRN SOB 03/17/21 Unknown History aerosol inhaler (ProAir HFA) albuterol sulfate 2.5 mg/3 mL 2.5 mg (3 mL) inhalation Q4H PRN 03/19/21 Unknown Rx (0.083 %) solution for nebulization shortness of breath or wheezing #180 mL ipratropium 0.5 mg-albuterol 3 mg 3 ml inhalation Q6H PRN shortness 03/19/21 Unknown Rx (2.5 mg base)/3 mL nebulization of breath or wheezing #180 mL soln nebulizer and compressor #1 ea 03/19/21 Unknown Rx albuterol sulfate 90 mcg/actuation 1 - 2 puff inhalation Q4H PRN PRN 09/03/24 Unknown Rx aerosol inhaler (Ventolin HFA) Wheezing ##1 prednisone 20 mg tablet 60 mg (3 x 20 mg) PO DAILY #15 09/03/24 Unknown Rx TABLETS Allergy/AdvReac Type Severity Reaction Status Date / Time pineapple Allergy Severe Anaphylaxis Verified 09/03/24 16:13 cat dander Allergy Intermediate Hives Verified 09/03/24 16:13 dog dander Allergy Intermediate Hives Verified 09/03/24 16:13 Family History Mother Heart disease, Onset Age: 58 Myocardial infarction Father Heart disease Myocardial infarction, Onset Age: 57 Other Asthma Cancer Diabetes Social History household members: significant other and family Smoking Status: Current every day smoker tobacco type: e-cigarettes Electronic Cigarette Use: with nicotine alcohol intake: never substance use type: marijuana caffeine: Yes what type of physical activity do you participate in: none seatbelt use: always do you feel safe at home: Yes additional social history: 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 ROS ROS ED Constitutional Constitutional ED: Denies chills or fever(s) Eyes Eyes: Denies blurry vision or change in vision ENT ENT ED: Denies rhinorrhea or sore throat Cardiovascular Cardiovascular: Denies chest pain or palpitations Respiratory/Chest Respiratory/Chest: Reports cough and dyspnea Gastrointestinal Gastrointestinal: Denies nausea or vomiting Genitourinary Genitourinary ED: Denies dysuria or hematuria Musculoskeletal Musculoskeletal: Reports back pain; Denies neck pain Integumentary Denies abscess or rash Neurologic Neurologic: Denies headache(s) or weakness Allergic/Immunologic Allergic/Immunologic ED: Denies mouth swelling or urticaria EXAM Physical Exam Const Vital Signs: 09/03/24 16:09 09/03/24 16:13 09/03/24 16:14 Temperature 97.5 F L 97.5 F L Temperature Source Axillary Rectal Pulse Rate 108 H 111 H Respiratory Rate 25 H 17 Respiratory Effort Short of Breath Respiratory Depth Shallow Respiratory Pattern Tachypnea Blood Pressure 119/80 119/80 Blood Pressure Mean 93 93 Pulse Ox 99 98 Oxygen Delivery Method Room Air Room Air 09/03/24 16:15 09/03/24 17:08 09/03/24 17:10 Temperature 98.2 F Temperature Source Oral Pulse Rate 113 H 107 H Respiratory Rate 20 H 16 Respiratory Effort Respiratory Depth Respiratory Pattern Blood Pressure 149/93 H Blood Pressure Mean 111 Pulse Ox 97 Oxygen Delivery Method Room Air Room Air 09/03/24 17:39 Temperature Temperature Source Pulse Rate 102 H Respiratory Rate 16 Respiratory Effort Respiratory Depth Respiratory Pattern Blood Pressure Blood Pressure Mean Pulse Ox Oxygen Delivery Method Positive well nourished and well developed General Appearance ED: well developed and NAD HEENT Reports moist mucous membranes Neck supple and no JVD Resp Auscultation: wheezes expiratory wheezes and throughout Cardio regular rhythm Rate: tachycardic GI non-tender and non-distended Palpation: soft Extremity normal to inspection Neuro oriented x3, CN's II-XII intact bilaterally and no sensory deficits noted Tarrs Coma Scale: document GCS findings Spontaneous Obeys Commands Oriented 15 Sensorium / Orientation: alert Speech: speech normal Motor Exam: strength 5/5 throughout Psych mental status grossly normal Mood & Affect: anxious MDM MDM MDM Narrative Medical decision making narrative: Differential diagnosis multiple asthma exacerbation, pneumonia, bronchitis, pneumothorax, cardiac dysrhythmia, cardiac ischemia, and anxiety. EKG will be obtained to assess for cardiac dysrhythmia and cardiac ischemia. Chest x-ray will be obtained to assess for pneumonia or bronchitis. CBC will be obtained to assess for leukocytosis and anemia. Basic metabolic profile will be obtained to assess for electrolyte abnormality renal function. Serum hCG will be obtained to assess for . Lab Data Attestation: I reviewed the patient's lab results. Lab results narrative: CBC was reviewed and was within normal limits. Basic metabolic profile was reviewed and was normal. Serum hCG was reviewed and was negative. Labs: Laboratory Results - last 24 hr 09/03/24 16:16 WBC 7.6 RBC 5.12 Hgb 14.3 Hct 42.8 MCV 83.6 MCH 27.9 MCHC 33.4 RDW Std Deviation 40.6 RDW Coeff of Swapna 13.2 Plt Count 280 MPV 11.3 Immature Gran % (Auto) 0.300 Neut % (Auto) 72.7 H Lymph % (Auto) 14.3 L [place] % (Auto) 6.3 Eos % (Auto) 5.6 H Baso % (Auto) 0.8 Absolute Neuts (auto) 5.6 Absolute Lymphs (auto) 1.09 Nucleated RBC % 0 Sodium 139 Potassium 3.6 Chloride 105 Carbon Dioxide 21.4 Anion Gap 13 BUN 7 Creatinine 0.83 Estim Creat Clear Calc 141.98 Est GFR (MDRD) Non-Af 100 BUN/Creatinine Ratio 8.8 L Glucose 84 Calcium 9.2 Serum , Qual NEGATIVE Radiography Chest X-Ray - ED: 2 View, Read by ED Physician, Read by Radiologist and No Acute Disease Diagnostic Testing: Clinical Impression(s) from Imaging Studies Chest X-Ray 09/03/24 16:40 IMPRESSION: No active disease. Reading Location: [facility] PA and lateral chest x-ray was obtained. There are 2 views. On my independent interpretation, lung martin are clear. There is normal cardiac silhouette. Bony thorax is normal. There is no acute process noted. Radiologist also interpreted the x-ray and agrees. EKG Initial EKG: Attestation: I personally reviewed and interpreted this EKG as follows: Interpretation: No Acute Injury Pattern and Sinus Tachycardia (105) Comments: EKG was obtained. On my independent interpretation, it showed a sinus tachycardia with a rate of 105. [place] interval, QRS interval, and QTc intervals were all normal. [place] was normal. There are no acute ST or T wave changes. Prior EKG tracings: not available for review Prior: No Prior Treatment and Re-Evaluation :: Nicotine cessation was discussed. Patient was given a DuoNeb and albuterol aerosol here. Patient was given a dose of Solu-Medrol. Patient was given repeat albuterol aerosols. Patient was feeling better but still had some wheezing on reevaluation. Patient was given a prescription for prednisone. Patient was given her prescription for refill of her albuterol inhaler. Patient was instructed to follow-up with her primary care physician in 5 to 7 days. Patient understood and was agreeable with the plan. All questions were answered. Discharge Plan Triage Chief Complaint: Asthma ED Provider: Solitario Pineda Dx/Rx/DC Orders Clinical Impression: Asthma exacerbation, Nicotine vapor product user Instructions: ED Asthma, Acute (Adult) Prescriptions: New prednisone 20 mg tablet 60 mg PO DAILY Qty: 15 0RF Continued albuterol sulfate [Ventolin HFA] 1 INHALER inhaler 1 - 2 puff inhalation Q4H PRN PRN (Reason: Wheezing) Qty: 1 0RF No Action albuterol sulfate [ProAir HFA] 90 mcg/actuation Hfa Aerosol Inhaler 2 puff INHALATION Q6H PRN (Reason: SOB) ipratropium-albuterol 0.5 mg-3 mg(2.5 mg base)/3 mL solution for nebulization 3 ml inhalation Q6H PRN (Reason: shortness of breath or wheezing) Qty: 180 0RF albuterol sulfate 2.5 mg /3 mL (0.083 %) solution for nebulization 2.5 mg inhalation Q4H PRN (Reason: shortness of breath or wheezing) Qty: 180 0RF (DME) nebulizer and compressor Device See Rx Instructions .ROUTE .MEDSUPPLY Qty: 1 0RF Rx Instructions: As directed Primary Care Provider: Hugo Carl Referrals: Hugo Carl MD [Primary Care Provider] - 3-5 Days Print Language: Italian Disposition Disposition: Home, Self Care
[2024-09-03] MEDS: MethylPREDNISolone 125 MG/2 ML Vial 60 MG IV (16:33)
[2024-09-03] MEDS: 0.9% Normal Saline (1000mL) 1,000 ML 1000 ML IV (16:33)
--- NOTE | 2024-09-03 16:40 | RAD_ITS ---
PROCEDURE: CHEST PA AND LATERAL 09/03/2024 REASON FOR EXAM: DYSPNEA TECHNIQUE: Frontal and lateral views of the chest. FINDINGS: Hardware: None Heart: The heart size is normal. Mediastinum: The mediastinal contour is unremarkable. Lungs: The lungs are clear. Bones: The bones are unremarkable. RAD/Chest PA and Lateral IMPRESSION: No active disease. Reading Location: [id number]
[2024-09-03 16:49] LABS: Absolute Lymphocyte Count 1.09 X10^3/uL (0.83-4.51); Absolute Neutrophil Count 5.6 X10^3/uL (2.0-7.7); Basophil# 0.06 X10^3/uL; Basophil% 0.8 % (0-1); Eosinophil# 0.43 X10^3/uL; Eosinophils% 5.6 % (0-5); Hematocrit 42.8 % (37-47); Hemoglobin 14.3 g/dL (12.0-15.0); Lymphocyte # 1.09 X10^3/ul (0.83-4.51); Lymphocyte % 14.3 % (19-41); Mean Corp Hgb Conc 33.4 g/dL (32-36); Mean Corpuscular Hgb 27.9 pg (27.0-32.0); Mean Corpuscular Volume 83.6 fL (81-99); Mean Platelet Vol. 11.3 fl (6.2-12.0); Monocyte# 0.48 X10^3/uL; Monocyte% 6.3 % (0-10); NRBC Flagged by Analyzer 0 % (0-5); Neutrophil # 5.55 X10^3/uL (2.7-7.7); Neutrophil % 72.7 % (47-70); Platelet Count 280 K/mm3 (150-450); RBC Distribution Width CV 13.2 % (11.6-14.6); RBC Distribution Width SD 40.6 fl (35.1-43.9); Red Blood Count 5.12 M/mm3 (4.2-5.4); White Blood Count 7.6 K/mm3 (4.4-11.0)
[2024-09-03 17:22] LABS: Anion Gap 13 (5-15); BUN 7 mg/dL (4-19); BUN/Creat Ratio 8.8 RATIO (10-20); Calcium,Total 9.2 mg/dL (7.6-11.0); Carbon Dioxide 21.4 mmol/L (21.0-32.0); Chloride 105 mmol/L (98-108); Creatinine, Serum 0.83 mg/dL (0.70-1.20); EST Glomerular Filtration Rate 100 (>60); Estimated Creatinine Clearance 141.98 ml/min (50-250); Glucose 84 mg/dL (70-99); Potassium 3.6 mmol/L (3.3-5.1); Sodium Level 139 mmol/L (133-145)
[2024-09-03 17:33] LABS: Internal QC Validated? YES +Cl - CLEAR BKGD; Pregnancy, Serum, hCG Quali. NEGATIVE Negative; Record Kit Lot#, Serum Preg. 929381
== END 2024-09-03 19:13 | disposition home or self-care (01) ==
PROVIDERS: Emergency Provider Emergency Medicine; PCP Family Medicine; Visit Provider Emergency Medicine
DX: J45.901 Unspecified asthma with (acute) exacerbation (principal); F17.290 Nicotine dependence, other tobacco product, uncomplicated
CPT/HCPCS: 71046; 80048; 84703; 85025; 93005; 94640; 96361; 96374; 99284; A4216